=== PATIENT | male | born 2000 | race Caucasian/White ===

== ENCOUNTER 2019-04-18 09:58 | Emergency (ER) | payer OTHER ==
[~2019-04-18] VITALS: Ht 185.4 cm; Wt 54.4 kg
[~2019-04-18 09:58] MED LIST: AMOXICILLIN 50500 MG PO; CLONIDINE; CONCERTA; RESPERDAL
[2019-04-18 11:18] LABS: URINE BILIRUBIN NEGATIVE (Negative); URINE BLOOD NEGATIVE (Negative); URINE CLARITY CLEAR; URINE COLOR YELLOW; URINE GLUCOSE-RANDOM NEGATIVE (Negative); URINE KETONES NEGATIVE (Negative); URINE LEUKOCYTES-REFLEX NEGATIVE (Negative); URINE NITRITE-REFLEX NEGATIVE (Negative); URINE PROTEIN NEGATIVE (Negative); URINE UROBILINOGEN 0.2 E.U./dl (0.2-1.0)
[2019-04-18 11:40] LABS: ABSOLUTE BASOPHILS 0.1 thou/uL (0.0-0.2); ABSOLUTE EOSINOPHILS 0.1 thou/uL (0.0-0.7); ABSOLUTE LYMPHOCYTES 1.6 thou/uL (0.8-5.3); ABSOLUTE MONOCYTES 0.6 thou/uL (0.0-1.2); ABSOLUTE NEUTROPHILS 6.2 thou/uL (1.6-8.1); BASOPHILS 0.9 %; EOSINOPHILS 0.8 %; HEMATOCRIT 43.5 % (42.0-52.0); HEMOGLOBIN 15.2 gm/dL (14.0-18.0); LYMPHOCYTES 19.2 %; MCH 30.2 pg (26.0-34.0); MCHC 34.9 g/dL (28.0-37.0); MCV 86.5 fL (80.0-100.0); MONOCYTES 6.5 %; MPV 10.3 fl. (7.2-11.1); NUCLEATED RBCS 0 /100WBC; PLATELET COUNT* 182 thou/uL (150-400); POLYS 72.6 %; RBC 5.02 mil/uL (4.50-6.00); RDW-CV 14.1 % (10.5-14.5); WBC 8.5 thou/uL (4.0-11.0)
[2019-04-18] MEDS ORDERED: ACYCLOVIR 200200 MG PO (11:46)
[2019-04-18 11:48] LABS: CALCIUM 9.4 mg/dL (8.5-10.1); CREATININE 0.7 mg/dL (0.6-1.3); POTASSIUM 4.5 mmol/L (3.5-5.1)
[2019-04-18 11:52] LABS: ALBUMIN 4.3 g/dL (3.4-5.0); TOTAL BILIRUBIN 0.3 mg/dL (<0.1-1.0); TOTAL PROTEIN 8.2 g/dL (6.4-8.2)
[2019-04-18 12:20] VITALS: BP 125/80
== END 2019-04-18 12:20 | disposition home or self-care (01) ==
LOC: M.ERS 09:58
PROVIDERS: Physician Assistant
DX: A60.00 Herpesviral infection of urogenital system, unspecified (principal); F90.9 Attention-deficit hyperactivity disorder, unspecified type; Z88.5 Allergy status to narcotic agent

== ENCOUNTER 2019-05-05 15:22 | Emergency (ER) | payer OTHER ==
[~2019-05-05] VITALS: Ht 180.3 cm; Wt 59.0 kg
[~2019-05-05 15:22] MED LIST changes: +ACYCLOVIR 200200 MG PO
[2019-05-05] MEDS ORDERED: PREDNISONE 20 M20 MG PO (16:06)
[2019-05-05] MEDS ORDERED: ACTICIN 5% CREA60 G1 TOP (16:06)
[2019-05-05 16:13] VITALS: BP 131/78
== END 2019-05-05 16:13 | disposition home or self-care (01) ==
LOC: M.ERS 15:22
DX: B86 Scabies (principal); F17.210 Nicotine dependence, cigarettes, uncomplicated

== ENCOUNTER 2019-09-06 21:08 | Emergency (ER) | payer OTHER ==
[~2019-09-06] VITALS: Ht 185.4 cm; Wt 58.5 kg
[~2019-09-06 21:08] MED LIST changes: +ACTICIN 5% CREA60 G1 TOP; +PREDNISONE 20 M20 MG PO
[2019-09-06 22:40] VITALS: BP 130/90
== END 2019-09-06 22:43 | disposition home or self-care (01) ==
LOC: M.ERS 21:08
DX: J06.9 Acute upper respiratory infection, unspecified (principal); F12.10 Cannabis abuse, uncomplicated; F31.9 Bipolar disorder, unspecified; F90.9 Attention-deficit hyperactivity disorder, unspecified type; J02.9 Acute pharyngitis, unspecified; R07.9 Chest pain, unspecified; Z88.5 Allergy status to narcotic agent